=== PATIENT | female | born 1985 | race Caucasian/White ===

== ENCOUNTER 2020-10-24 19:21 | Emergency (ER) | payer MEDICAID ==
[~2020-10-24] VITALS: Ht 152.4 cm; Wt 56.7 kg
[2020-10-24 20:04] VITALS: BP 108/68
--- NOTE | 2020-10-24 20:17 | NUR ---
URINE COLLECTED AND SENT TO LAB
[2020-10-24 20:21] LABS: BILIRUBIN,URINE Negative (NEGATIVE); COLOR,URINE YELLOW (YELLOW); LEUKOCYTE ESTERASE ,URINE Negative (NEGATIVE); NITRITE, URINE Negative (NEGATIVE); PROTEIN,URINE Negative (NEGATIVE); UGLUCOSE Negative (NEGATIVE); UROBILINOGEN,URINE 0.2 EU/dL (0.2)
[2020-10-24] MEDS ORDERED: IBUP-1955 PO (20:37)
== END 2020-10-24 20:49 | disposition home or self-care (01) ==
LOC: ER 19:27
DX: S39.012A Strain of muscle, fascia and tendon of lower back, initial encounter (principal); R35.0 Frequency of micturition; R10.30 Lower abdominal pain, unspecified; X58.XXXA Exposure to other specified factors, initial encounter; Y93.89 Activity, other specified; Y92.89 Other specified places as the place of occurrence of the external cause; Y99.8 Other external cause status
CPT/HCPCS: 84703-TC

== ENCOUNTER 2021-02-05 09:29 | Emergency (ER) | payer MEDICAID ==
[~2021-02-05] VITALS: Ht 157.5 cm; Wt 59.0 kg
[~2021-02-05 09:29] MED LIST: IBUP-1955 PO
--- NOTE | 2021-02-05 09:50 | NUR ---
Patient came in to the er c/o "Body Aches/Bone pain/weakness/back pain and nausea x1wk went to clinic was Dx anxiety- given Cymbalta NOT Helping". On room air, breathing evenly and unlabored. Connected to the monitor and pulse ox. kept comfortable, will continue to monitor accordingly.
--- NOTE | 2021-02-05 09:58 | NUR ---
IV started on the RAC g18 and blood drawned and sent to lab.
[2021-02-05 10:08] LABS: BASOPHILS % (AUTO) 0.3 % (0.0-2.0); EOSINOPHILS % (AUTO) 0.4 % (0.0-6.0); HEMATOCRIT 41 % (33-45); HEMOGLOBIN 13.6 g/dL (11.5-14.8); LYMPHOCYTES % (AUTO) 21.6 % (20.0-44.0); MEAN CORPUSCULAR HGB CONC 33 g/dl (31.0-36.0); MEAN CORPUSCULAR VOLUME 87 fL (82-100); MONOCYTES # (AUTO) 0.4 K/uL (0.1-1.30); NEUTROPHILS # (AUTO) 3.1 K/uL (1.8-8.9); NEUTROPHILS % (AUTO) 68.7 % (43.0-81.0); PLATELET COUNT (AUTO) 252 K/uL (150-450); WHITE BLOOD COUNT (AUTO) 4.5 K/uL (4.3-11.0)
[2021-02-05] MEDS ORDERED: ONDANSETRON HCL/PF 4 MG/2 ML VIAL IV ONE (10:30)
[2021-02-05] MEDS ORDERED: IV NS 0.9% 500 ML BAG IV ONE (10:30)
[2021-02-05] MEDS ORDERED: ACETAMINOPHEN ES 500 MG TABLET PO ONE (10:30)
[2021-02-05] MEDS ORDERED: KETOROLAC TROMETHAMINE INJ 30 MG/ML VIAL IV ONE (10:30)
[2021-02-05] MEDS ORDERED: KETOROLAC TROMETHAMINE 15 MG/ML VIAL ONE (10:36)
[2021-02-05] MEDS ORDERED: ACETAMINOPHEN ES 500 MG TABLET ONE (10:36)
[2021-02-05] MEDS ORDERED: ONDANSETRON HCL/PF 4 MG/2 ML VIAL ONE (10:36)
[2021-02-05 10:49] LABS: CALCIUM, SERUM 8.7 mg/dL (8.5-10.1); CARBON DIOXIDE 24 mmol/L (21-32); CHLORIDE 102 mmol/L (98-107); CREATININE 0.8 mg/dL (0.6-1.3); GLUCOSE 100 mg/dL (74-106); POTASSIUM 3.8 mmol/L (3.5-5.1); SODIUM SERUM 135 mmol/L (136-145); UREA NITROGEN, BLOOD 11 mg/dL (7-18)
[2021-02-05] MEDS ORDERED: ONDA4TAB5 PO (12:38)
[2021-02-05 12:53] VITALS: BP 118/71
--- NOTE | 2021-02-05 12:53 | NUR ---
Patient discharged to home in stable condition. Written and verbal after care instructions given. Patient verbalizes understanding of instruction.IV removed. Catheter intact and site benign. Pressure and 4x4 applied to site. No bleeding noted.
== END 2021-02-05 12:53 | disposition home or self-care (01) ==
LOC: ER 09:32
DX: M79.7 Fibromyalgia (principal); R11.0 Nausea; F32.9 Major depressive disorder, single episode, unspecified; Z79.899 Other long term (current) drug therapy
CPT/HCPCS: 36415; 71045; 80048; 83880; 84484; 84703; 85025; 85378; 93005 ×2; 96374; 96375; 99285; J1885; J2405; J7040

== ENCOUNTER 2022-06-26 08:54 | Emergency (ER) | payer MEDICAID ==
[~2022-06-26] VITALS: Ht 139.7 cm; Wt 49.0 kg
[~2022-06-26 08:54] MED LIST changes: +ONDA4TAB5 PO
--- NOTE | 2022-06-26 08:54 | NUR ---
BIB FAMILY C/O DULL ABDOMINAL PAIN X2 DAYS THAT RADIATES TO L BACK, PAIN 10/10. VITALS ARE WITHIN NORMAL LIMITS. AWAITING MD ORDERS.
--- NOTE | 2022-06-26 09:10 | NUR ---
URINE COLLECTED AND SENT
--- NOTE | 2022-06-26 09:15 | NUR ---
IV ESTABLISHED R 22G. LABS COLLECTED AND SENT.
[2022-06-26] MEDS ORDERED: ONDANSETRON HCL/PF 4 MG/2 ML VIAL ONE (09:23)
[2022-06-26] MEDS ORDERED: IV NS 0.9% 1,000 ML BAG IV ONE (09:30)
[2022-06-26] MEDS ORDERED: ONDANSETRON HCL/PF 4 MG/2 ML VIAL IVP ONE (09:30)
--- NOTE | 2022-06-26 09:30 | NUR ---
ULTRASOUND AT BEDSIDE
[2022-06-26 09:44] LABS: BASOPHILS % (AUTO) 0.1 % (0.0-2.0); EOSINOPHILS % (AUTO) 0.3 % (0.0-6.0); HEMATOCRIT 38 % (33-45); HEMOGLOBIN 12.2 g/dL (11.5-14.8); LYMPHOCYTES # (AUTO) 1.6 K/uL (0.8-4.8); LYMPHOCYTES % (AUTO) 14.6 % (20.0-44.0); MEAN CORPUSCULAR HGB CONC 33 g/dl (31.0-36.0); MEAN CORPUSCULAR VOLUME 83 fL (82-100); MONOCYTES # (AUTO) 0.6 K/uL (0.1-1.30); MONOCYTES % (AUTO) 5.5 % (2.0-12.0); NEUTROPHILS # (AUTO) 8.8 K/uL (1.8-8.9); NEUTROPHILS % (AUTO) 79.5 % (43.0-81.0); PLATELET COUNT (AUTO) 325 K/uL (150-450); RED BLOOD CELL COUNT(AUTO) 4.54 MIL/uL (4.0-5.2); WHITE BLOOD COUNT (AUTO) 11.1 K/uL (4.3-11.0)
[2022-06-26 09:53] LABS: CREATININE 0.8 mg/dL (0.6-1.3); POTASSIUM 3.7 mmol/L (3.5-5.1)
[2022-06-26 09:58] LABS: ALBUMIN 3.9 g/dL (3.4-5.0); BILIRUBIN,DIRECT 0.1 mg/dL (0.0-0.2); BILIRUBIN,TOTAL 0.4 mg/dL (0.2-1.0); TOTAL PROTEIN, SERUM 7.9 g/dL (6.4-8.2)
[2022-06-26 10:18] LABS: BILIRUBIN,URINE NEGATIVE (NEGATIVE); COLOR,URINE YELLOW (YELLOW); LEUKOCYTE ESTERASE ,URINE 2+ (NEGATIVE); NITRITE, URINE NEGATIVE (NEGATIVE); PROTEIN,URINE NEGATIVE (NEGATIVE); UGLUCOSE NEGATIVE (NEGATIVE); UROBILINOGEN,URINE 0.2 EU/dL (0.2)
[2022-06-26 11:08] LABS: BACTERIA,URINE Few /HPF (None Seen); SQUAMOUS EPITHELIAL CELL,UR Few /HPF (None Seen)
[2022-06-26] MEDS ORDERED: KETOROLAC TROMETHAMINE 15 MG/ML VIAL ONE (11:38)
[2022-06-26] MEDS ORDERED: CEFTRIAXONE 1GM BAG (ER ONLY) 50 ML IV ONE (11:38)
[2022-06-26] MEDS ORDERED: CEFTRIAXONE 1 G in IV D5W 50 ML IV ONE (12:00)
[2022-06-26] MEDS ORDERED: KETOROLAC TROMETHAMINE INJ 30 MG/ML VIAL IV ONE (12:00)
[2022-06-26] MEDS ORDERED: CEPH500C2 PO (13:15)
[2022-06-26] MEDS ORDERED: IBUP-1955 PO (13:15)
[2022-06-26] MEDS ORDERED: PHEN-704 PO (13:15)
[2022-06-26 13:30] VITALS: BP 118/74
== END 2022-06-26 13:30 | disposition home or self-care (01) ==
LOC: ER 08:59
DX: N39.0 Urinary tract infection, site not specified (principal); R10.2 Pelvic and perineal pain; Z79.899 Other long term (current) drug therapy
CPT/HCPCS: 99285; 96365; 76856; 96375; 96361; 85025; 80048; 87086; 83690; 80076; 84703; 81001; 36415; J2405; J7030; J0696; J1885

== ENCOUNTER 2023-10-05 12:23 | Emergency (ER) | payer MEDICAID, OTHER ==
[~2023-10-05] VITALS: Ht 149.9 cm; Wt 56.2 kg
[~2023-10-05 12:23] MED LIST changes: +CEPH500C2 PO; +PHEN-704 PO
[2023-10-05] MEDS ORDERED: IBUPROFEN 600 MG TABLET ONE (13:03)
[2023-10-05] MEDS ORDERED: ONDANSETRON 4 MG TAB.RAPDIS ONE (13:03)
[2023-10-05] MEDS: IBUPROFEN 600 MG TABLET PO ONE (13:07)
[2023-10-05] MEDS: ONDANSETRON 4 MG TAB.RAPDIS SL ONE (13:08)
[2023-10-05 14:05] VITALS: BP 115/75; TEMP 98.7; O2SAT 100
== END 2023-10-05 14:06 | disposition home or self-care (01) ==
LOC: ER 12:54
DX: R07.89 Other chest pain (principal); Z79.899 Other long term (current) drug therapy
CPT/HCPCS: 99283; 71045; 93005; Q0162